=== PATIENT | male | born 1955 | race Two or more races ===

== ENCOUNTER 2021-05-16 01:48 | Emergency (ER) | payer MEDICARE, OTHER ==
[~2021-05-16] VITALS: Ht 167.6 cm; Wt 35.4 kg
[2021-05-16 07:03] VITALS: BP 154/84
== END 2021-05-16 07:06 | disposition home or self-care (01) ==
LOC: EDBD 01:48 → ER 01:48
DX: R51.9 Headache, unspecified (principal); F10.10 Alcohol abuse, uncomplicated; I10 Essential (primary) hypertension; Y90.9 Presence of alcohol in blood, level not specified
CPT/HCPCS: 70450